=== PATIENT | female | born 1995 | race Caucasian/White ===

== ENCOUNTER 2020-04-16 13:55 | Inpatient (IN) ==
[~2020-04-16 13:55] MED LIST: *HR* FentaNYL (PF) 100 MCG/2 ML VIAL IVP PRN; Famotidine 20 MG/2 ML VIAL IVP PRN; Lidocaine 1% 20 ML MDV INFILT PRN; Metoclopramide 10 MG/2 ML VIAL IVP PRN; Naloxone 0.4 MG/ML INJ IVP PRN; Ondansetron 4 MG/2 ML VIAL IVP PRN
[2020-04-16] MEDS ORDERED: Ringers Solution, Lactated 1,000 ML ONE (13:57)
[2020-04-16 14:32] LABS: Basophils % 0.2 %; Eosinophils % 0.2 %; Hematocrit 40.4 % (35.3-44.9); Hemoglobin 12.9 g/dL (11.5-15.4); Immature Granulocytes % 0.5 % (0-4); Lymphocytes # 1.7 K/mcL (0.6-4.6); Lymphocytes % 9.6 %; Mean Corpuscular HGB Conc 31.9 g/dL (31.6-35.5); Mean Corpuscular Hemoglobin 26.7 pg (28.0-33.3); Mean Corpuscular Volume 83.6 fL (83.0-100.0); Mean Platelet Volume 10.3 fL (9.4-12.4); Monocytes # 1.3 K/mcL (0.0-1.3); Monocytes % 7.5 %; Neutrophils # 14.2 K/mcL (1.6-8.9); Platelet Count 341 K/mcL (140-400); Red Blood Count 4.83 M/mcL (3.82-4.97); Red Cell Distribution Width 21.2 % (11.5-14.5); White Blood Count 17.3 K/mcL (4.3-11.1)
[2020-04-16 14:38] LABS: Amphetamine Screen,Urine Negative ng/mL (Cutoff=1000); Barbiturate Screen,Urine Negative ng/mL (Cutoff=200); Benzodiazepines Screen,Urine Negative ng/mL (Cutoff=200); Cannabinoid Screen,Urine Negative ng/mL (Cutoff = 50); Cocaine Screen,Urine Negative ng/mL (Cutoff= 300); Opiate Screen,Urine Negative ng/mL (Cutoff=300); Phencyclidine Screen,Urine Negative ng/mL (Cutoff=25)
[2020-04-16] MEDS ORDERED: EPHEDrine 50 MG/ML VIAL IVP PRN (17:09)
[2020-04-16] MEDS ORDERED: Epidural Premix (fent/bupiv) 110 ML EP SCH (17:15)
[2020-04-16] MEDS ORDERED: *HR* FentaNYL (PF) 100 MCG/2 ML VIAL ONE (17:26)
[2020-04-16] MEDS ORDERED: Ropivacaine/PF 0.2% 20 ML VIAL ONE (17:27)
[2020-04-16] MEDS: Ringers Solution, Lactated 1,000 ML IVC SCH ×2 (17:30→18:09)
[2020-04-16] MEDS ORDERED: Oxytocin 20 units/ LR 1000 mL 20 UNIT/1,000 ML BAG IVC SCH (17:45)
[2020-04-16] MEDS ORDERED: D5% in Lactated Ringers 1,000 ML IVC SCH (18:45)
[2020-04-17] MEDS ORDERED: Acetaminophen 325 MG TABLET PO ONE (00:44)
[2020-04-17] MEDS ORDERED: Penicillin G Potassium 5,000,000 UNIT in 0.9 % Sodium Chloride Mini Bag 100 ML IVPB ONE (02:09)
[2020-04-17] MEDS ORDERED: Ampicillin 2 GM in 0.9 % Sodium Chloride Mini Bag 100 ML IVPB SCH (02:45)
[2020-04-17] MEDS ORDERED: Gentamicin 240 MG in 0.9 % Sodium Chloride 100 ML IVPB SCH (02:46)
[2020-04-17] MEDS ORDERED: Gentamicin 280 MG in 0.9 % Sodium Chloride 100 ML IVPB SCH (04:00)
[2020-04-17] MEDS ORDERED: Oxytocin 20 units/ LR 1000 mL 20 UNIT/1,000 ML BAG IVC SCH (04:04)
[2020-04-17] MEDS ORDERED: Lanolin 7 G OINT...G. TP PRN (04:04)
[2020-04-17] MEDS ORDERED: Ibuprofen 600 MG TABLET PO PRN (04:04)
[2020-04-17] MEDS ORDERED: Measles/Mumps/Rubella Vacc 0.5 ML VIAL SQ PRN (04:04)
[2020-04-17] MEDS ORDERED: Benzocaine/Menthol 56 GM AEROSOL SPRAY TP PRN (04:04)
[2020-04-17] MEDS ORDERED: Acetaminophen 325 MG TABLET PO PRN (04:04)
[2020-04-17] MEDS ORDERED: Clindamycin 900 MG/50 ML 900 MG/50 ML IV.SOLN IVPB SCH (08:16)
[2020-04-17] MEDS: Ampicillin 2 GM in 0.9 % Sodium Chloride Mini Bag 100 ML IVPB SCH ×3 (08:17→20:22)
[2020-04-17] MEDS: Prenatal Vit/FA 1 EACH TABLET PO SCH (08:19)
[2020-04-17] MEDS ORDERED: Ondansetron 4 MG/2 ML VIAL IVP PRN (09:24)
[2020-04-17] MEDS ORDERED: Methylergonovine 0.2 MG/ML AMPUL IM ONE (11:11)
[2020-04-18] MEDS: Clindamycin 900 MG/50 ML 900 MG/50 ML IV.SOLN IVPB SCH ×2 (00:08→07:51)
[2020-04-18] MEDS: Ampicillin 2 GM in 0.9 % Sodium Chloride Mini Bag 100 ML IVPB SCH (03:08)
[2020-04-18] MEDS ORDERED: Gentamicin 280 MG in 0.9 % Sodium Chloride 100 ML IVPB SCH (04:00)
[2020-04-18 06:58] LABS: Basophils # 0.1 K/mcL (0.0-0.2); Basophils % 0.3 %; Eosinophils # 0.3 K/mcL (0.0-0.6); Eosinophils % 1.4 %; Hematocrit 32.4 % (35.3-44.9); Immature Granulocytes % 0.7 % (0-4); Lymphocytes # 3.3 K/mcL (0.6-4.6); Lymphocytes % 18.7 %; Mean Corpuscular HGB Conc 31.5 g/dL (31.6-35.5); Mean Corpuscular Hemoglobin 27.6 pg (28.0-33.3); Mean Corpuscular Volume 87.8 fL (83.0-100.0); Mean Platelet Volume 10.8 fL (9.4-12.4); Monocytes # 1.2 K/mcL (0.0-1.3); Monocytes % 6.6 %; Neutrophils # 12.6 K/mcL (1.6-8.9); Platelet Count 230 K/mcL (140-400); Red Blood Count 3.69 M/mcL (3.82-4.97); Red Cell Distribution Width 21.2 % (11.5-14.5); Segmented Neutrophils % 72.3 %; White Blood Count 17.5 K/mcL (4.3-11.1)
[2020-04-18 06:59] LABS: Hemoglobin 10.2 g/dL (11.5-15.4)
[2020-04-18 07:42] VITALS: BP 119/67
[2020-04-18] MEDS: Prenatal Vit/FA 1 EACH TABLET PO SCH (07:51)
[2020-04-18] MEDS ORDERED: Lidocaine -MPF 1% 5 ML AMPUL INFILT ONE (08:27)
[2020-04-18] MEDS ORDERED: Etonogestrel 68 MG IMPLANT IL ONE (08:27)
[2020-04-18] MEDS ORDERED: cephALEXin 500 MG CAPSULE PO SCH (09:15)
== END 2020-04-18 13:30 | disposition home or self-care (01) | DRG 560 ==
LOC: 1NENULAB → 1NENUOBS 04-17 04:48
PROVIDERS: ADMIT Advanced Practice Midwife; ATTEND Advanced Practice Midwife